=== PATIENT | female | born 1965 | race Caucasian/White ===

== ENCOUNTER 2025-09-01 17:37 | Inpatient (IN) | payer OTHER ==
[~2025-09-01] VITALS: Ht 160 cm; Wt 56.2 kg
[2025-09-01] MEDS: MORPHINE SULFATE 4 MG/ML INJ (FOR IV/IM USE) IV ONE (18:04)
[2025-09-01] MEDS: SODIUM CHLORIDE 0.9% 1,000 ML IV ONE ×2 (18:05→20:28)
[2025-09-01] MEDS: ONDANSETRON HCL 4MG/2ML INJ IV ONE (18:05)
[2025-09-01 18:32] LABS: BASOPHILS % 0.4 % (0.0-2.0); EOSINOPHILS % 0.2 % (0.0-5.0); HEMATOCRIT. 41.2 % (36.0-48.0); HEMOGLOBIN. 13.5 g/dL (12.0-16.0); LYMPHOCYTES % 9.1 % (20.0-50.0); MEAN PLATELET VOLUME 9.0 fl (7.4-10.4); MONOCYTES % 7.0 % (2.0-8.0); NEUTROPHILS % 83.3 % (40.0-76.0); PLATELET 326 x1000/uL (130-400); RED BLOOD CELL COUNT 4.80 mill/uL (4.2-5.4); RED CELL DISTRIBUTION WIDTH 13.8 % (11.6-14.6)
[2025-09-01 18:46] LABS: UREA NITROGEN BLOOD 14 mg/dL (9-23)
[2025-09-01 18:47] LABS: CREATININE 0.8 mg/dL (0.6-1.0)
[2025-09-01 18:49] LABS: ASPARTATE AMINOTRANSFERASE 18 IU/L (<34); BILIRUBIN DIRECT < 0.1 mg/dL (<=3.0); BILIRUBIN TOTAL 0.4 mg/dL (0.1-1.0); PROTEIN TOTAL 7.2 g/dL (6.0-8.3)
[2025-09-01] MEDS: KETOROLAC 15MG/ML VIAL IV ONE (20:19)
[2025-09-01] MEDS: METOCLOPRAMIDE HCL 10MG/2ML VIAL IV ONE (20:28)
[2025-09-01] MEDS: CEFTRIAXONE 2GM/50ML 50 ML IV ONE (20:44)
[2025-09-01] MEDS: HYDROMORPHONE HCL/PF 2MG/ML INJ IV ONE (20:45)
[2025-09-01 23:30] VITALS: BP 149/67; PULSE 69; RESP 15; TEMP 36.696
[2025-09-01] MEDS ORDERED: DEXTROSE 50% WATER 50ML SYRINGE IV PRN (23:30)
[2025-09-01] MEDS ORDERED: ACETAMINOPHEN 325MG TABLET PO PRN (23:30)
[2025-09-02] MEDS: PANTOPRAZOLE SODIUM 40 MG/VIAL IV SCH
[2025-09-02] MEDS: SODIUM CHLORIDE 0.9% 1,000 ML IV SCH
[2025-09-02] MEDS: HYDROMORPHONE HCL/PF 1MG/ML INJ IV PRN (00:01)
[2025-09-02] MEDS: MVI, ADULT NO.1 10 ML, FOLIC ACID 1 MG, THIAMINE HCL 100 MG in SODIUM CHLORIDE 0.9% 1,0... IV SCH (02:03)
[2025-09-02 04:00] VITALS: BP 146/76; PULSE 78; RESP 16; TEMP 36.7; O2SAT 92
[2025-09-02] MEDS: ONDANSETRON HCL 4MG/2ML INJ IV PRN (06:32)
[2025-09-02] MEDS: PIPERACILLIN/TAZO 3.375G/50ML 50 ML IV SCH (06:32)
[2025-09-02] MEDS: BLOOD SUGAR DIAGNOSTIC STRIP TEST SCH (07:03)
[2025-09-02] MEDS: INSULIN LISPRO 100 UNITS/ML SUBCUT SCH (07:30)
[2025-09-02 08:00] VITALS: BP 154/86; PULSE 78; RESP 20; TEMP 36.5; O2SAT 95
[2025-09-02 12:00] VITALS: BP 148/71; PULSE 71; RESP 20; TEMP 36.5; O2SAT 93
[2025-09-02 16:00] VITALS: BP 150/84; PULSE 74; RESP 20; TEMP 36.7; O2SAT 95
[2025-09-02] MEDS ORDERED: LORAZEPAM 1MG TABLET PO PRN (17:45)
[2025-09-02] MEDS ORDERED: HYDRALAZINE 10 MG in SODIUM CHLORIDE 0.9% 50 ML IV PRN (18:00)
[2025-09-02] MEDS ORDERED: CLONIDINE 0.1MG TABLET PO PRN (18:00)
[2025-09-02 18:04] LABS: HEMATOCRIT. 40.6 % (36.0-48.0); HEMOGLOBIN. 13.5 g/dL (12.0-16.0); MEAN PLATELET VOLUME 9.2 fl (7.4-10.4); PLATELET 290 x1000/uL (130-400); RED BLOOD CELL COUNT 4.72 mill/uL (4.2-5.4); RED CELL DISTRIBUTION WIDTH 14.4 % (11.6-14.6)
[2025-09-02 18:25] LABS: LYMPHOCYTES % MANUAL 3.0 % (20.0-60.0); MONOCYTES % MANUAL 5.0 % (2.0-8.0); NEUTROPHILS % MANUAL 92.0 % (45.0-75.0); PLATELET ESTIMATE NORMAL
[2025-09-02 18:29] LABS: CREATININE 0.6 mg/dL (0.6-1.0); UREA NITROGEN BLOOD 13 mg/dL (9-23)
[2025-09-02 18:30] LABS: ASPARTATE AMINOTRANSFERASE 17 IU/L (<34); PROTEIN TOTAL 6.2 g/dL (6.0-8.3)
[2025-09-02 18:31] LABS: BILIRUBIN DIRECT 0.2 mg/dL (<=3.0); PHOSPHORUS 3.0 mg/dL (2.5-4.9)
[2025-09-02 18:32] LABS: BILIRUBIN TOTAL 0.7 mg/dL (0.1-1.0)
[2025-09-02 20:00] VITALS: BP 128/67; PULSE 79; RESP 16; TEMP 36.7; O2SAT 92
[2025-09-03] VITALS: BP 125/74; PULSE 102; RESP 20; TEMP 36.9; O2SAT 94
[2025-09-03 04:00] VITALS: BP 117/81; PULSE 98; RESP 18; TEMP 36.9; O2SAT 92
[2025-09-03 08:00] VITALS: BP 153/86; PULSE 96; RESP 20; TEMP 36.5; O2SAT 93
[2025-09-03] MEDS: AMLODIPINE 2.5MG TABLET PO SCH (08:32)
[2025-09-03 09:33] LABS: HEPATITIS A AB IGM NEGATIVE (Negative)
[2025-09-03 09:34] LABS: HEPATITIS B CORE AB IGM NEGATIVE (Negative); HEPATITIS C AB NON REACTIVE (Neg) (Negative)
[2025-09-03] MEDS: ACETAMINOPHEN 325MG TABLET PO PRN (12:31)
[2025-09-03] MEDS: SIMETHICONE 80MG TABLET CHEW PO PRN (15:01)
[2025-09-03 16:00] VITALS: BP 141/78; PULSE 81; RESP 18; TEMP 36.8; O2SAT 99
[2025-09-03 20:00] VITALS: BP 154/78; PULSE 82; RESP 18; TEMP 36.7; O2SAT 94
[2025-09-03] MEDS: DOCUSATE SODIUM 100MG CAPSULE PO SCH (20:39)
[2025-09-04] VITALS: BP 163/74; PULSE 86; RESP 20; TEMP 36.5; O2SAT 91
[2025-09-04 04:00] VITALS: BP 154/96; PULSE 89; RESP 20; TEMP 36.7; O2SAT 92
[2025-09-04 07:37] LABS: HEMATOCRIT. 37.8 % (36.0-48.0); HEMOGLOBIN. 12.6 g/dL (12.0-16.0); MEAN PLATELET VOLUME 8.9 fl (7.4-10.4); PLATELET 285 x1000/uL (130-400); RED BLOOD CELL COUNT 4.43 mill/uL (4.2-5.4); RED CELL DISTRIBUTION WIDTH 13.9 % (11.6-14.6)
[2025-09-04 07:48] LABS: UREA NITROGEN BLOOD 13 mg/dL (9-23)
[2025-09-04 07:50] LABS: PHOSPHORUS 2.0 mg/dL (2.5-4.9)
[2025-09-04 07:51] LABS: CREATININE 0.4 mg/dL (0.6-1.0)
[2025-09-04 08:00] VITALS: BP 155/82; PULSE 86; RESP 19; TEMP 36.4; O2SAT 93
[2025-09-04] MEDS: KCL 20MEQ/100ML PREMIX 100 ML IV SCH (10:29)
[2025-09-04 12:00] VITALS: BP 147/80; PULSE 86; RESP 18; TEMP 36.5; O2SAT 91
[2025-09-04 16:00] VITALS: BP 132/76; PULSE 94; RESP 18; TEMP 36.7; O2SAT 92
[2025-09-04 16:24] LABS: BAND% 7.0 % (1.0-6.0); EOSINOPHILS % MANUAL 1.0 % (0.0-5.0); LYMPHOCYTES % MANUAL 5.0 % (20.0-60.0); MONOCYTES % MANUAL 8.0 % (2.0-8.0); NEUTROPHILS % MANUAL 79.0 % (45.0-75.0); PLATELET ESTIMATE NORMAL
[2025-09-04] MEDS: SODIUM PHOSPHATE 20 MMOL in DEXT 5% WATER 243.3333 ML IV SCH (17:51)
[2025-09-04 20:00] VITALS: BP 138/63; PULSE 95; RESP 18; TEMP 36.7; O2SAT 94
[2025-09-04] MEDS: HYDROMORPHONE HCL/PF 2MG/ML INJ IV PRN (20:10)
[2025-09-04] MEDS: ZOLPIDEM TARTRATE 5MG TABLET PO PRN (20:26)
[2025-09-05] VITALS (8 sets, daily range): BP systolic 114–154; BP diastolic 62–84; PULSE 80–99; RESP 18–22; TEMP 36.4–36.8; O2SAT 92–98
[2025-09-05 06:39] LABS: PLATELET 298 x1000/uL (130-400); RED BLOOD CELL COUNT 3.98 mill/uL (4.2-5.4); RED CELL DISTRIBUTION WIDTH 14.1 % (11.6-14.6)
[2025-09-05 06:49] LABS: CREATININE 0.5 mg/dL (0.6-1.0)
[2025-09-05 06:50] LABS: UREA NITROGEN BLOOD 11 mg/dL (9-23)
[2025-09-05 06:51] LABS: ASPARTATE AMINOTRANSFERASE 18 IU/L (<34); PROTEIN TOTAL 5.5 g/dL (6.0-8.3)
[2025-09-05 06:52] LABS: BILIRUBIN DIRECT 0.2 mg/dL (<=3.0); BILIRUBIN TOTAL 0.6 mg/dL (0.1-1.0); PHOSPHORUS 2.2 mg/dL (2.5-4.9)
[2025-09-05] MEDS: KCL 20MEQ/100ML PREMIX 100 ML IV SCH (10:49)
[2025-09-05 12:59] LABS: BG BASE EXCESS 2.5 mmol/L (-2.0-3.0); BG CARBOXYHEMOGLOBIN 1.1 % (0.5-1.5); BG DEOXYHEMOGLOBIN 12.8 % (0.0-5.0); BG FRACTION INSPIRED OXYGEN 21; BG HCO3 ACT 25.6 mmol/L (21.0-28.0); BG METHEMOGLOBIN 0.3 % (0.5-1.5); BG OXYGEN SATURATION 87.0 % (94.0-98.0); BG OXYHEMOGLOBIN 85.8 % (94.0-98.0); BG PCO2 34.5 mmHg (32.0-45.0); BG PH 7.488 (7.350-7.450); BG PO2 46.2 mmHg (83.0-108.0); BG SAMPLE SITE ALINE; BG TOTAL HEMOGLOBIN 12.2 g/dL (12.0-16.0); BG VENT MODE ROOM AIR
[2025-09-05] MEDS: IPRATROPIUM/ALBUTEROL 0.5-3(2.5)MG/3ML NEB HHN SCH (13:10)
[2025-09-05] MEDS: BUDESONIDE 0.5MG/2ML NEB HHN SCH (13:45)
[2025-09-05] MEDS: POTASSIUM PHOSPHATE 20 MMOL in DEXT 5% WATER 243.3333 ML IV SCH (15:34)
[2025-09-05] MEDS: PREDNISONE 20MG TABLET PO SCH (17:40)
[2025-09-05] MEDS ORDERED: LACTULOSE 20G/30ML UDC PO PRN (18:00)
[2025-09-05] MEDS: ACETAMINOPHEN 500MG TABLET PO SCH (18:22)
[2025-09-06] VITALS (10 sets, daily range): BP systolic 108–156; BP diastolic 66–88; PULSE 75–88; RESP 16–20; TEMP 36.2–36.8; O2SAT 92–96
[2025-09-06 06:55] LABS: HEMATOCRIT. 31.5 % (36.0-48.0); HEMOGLOBIN. 10.8 g/dL (12.0-16.0); MEAN PLATELET VOLUME 8.2 fl (7.4-10.4); PLATELET 316 x1000/uL (130-400); RED BLOOD CELL COUNT 3.72 mill/uL (4.2-5.4); RED CELL DISTRIBUTION WIDTH 14.2 % (11.6-14.6)
[2025-09-06 07:04] LABS: CREATININE 0.5 mg/dL (0.6-1.0); UREA NITROGEN BLOOD 9 mg/dL (9-23)
[2025-09-06 07:05] LABS: LACTATE DEHYDROGENASE 309 IU/L (120-246)
[2025-09-06] MEDS: POLYETHYLENE GLYCOL 3350 (17GM) 1 DOSE PACK PO SCH (08:30)
[2025-09-06 19:54] LABS: BAND% 5.0 % (1.0-6.0); EOSINOPHILS % MANUAL 1.0 % (0.0-5.0); LYMPHOCYTES % MANUAL 3.0 % (20.0-60.0); MONOCYTES % MANUAL 12.0 % (2.0-8.0); NEUTROPHILS % MANUAL 79.0 % (45.0-75.0); PLATELET ESTIMATE NORMAL
[2025-09-07] VITALS (8 sets, daily range): BP systolic 138–153; BP diastolic 62–77; PULSE 76–85; RESP 14–20; TEMP 36.5–36.9; O2SAT 91–95
[2025-09-07] MEDS: IPRATROPIUM/ALBUTEROL 0.5-3(2.5)MG/3ML NEB HHN PRN (08:43)
[2025-09-07] MEDS: POTASSIUM CHLORIDE 20MEQ TABLET SR PO SCH (09:52)
[2025-09-07] MEDS: PREDNISONE 10MG TABLET PO SCH (09:56)
[2025-09-07 16:46] LABS: HEMATOCRIT. 34.8 % (36.0-48.0); HEMOGLOBIN. 11.7 g/dL (12.0-16.0); MEAN PLATELET VOLUME 7.8 fl (7.4-10.4); PLATELET 428 x1000/uL (130-400); RED BLOOD CELL COUNT 4.08 mill/uL (4.2-5.4); RED CELL DISTRIBUTION WIDTH 14.5 % (11.6-14.6)
[2025-09-07 16:58] LABS: CREATININE 0.4 mg/dL (0.6-1.0); UREA NITROGEN BLOOD 9 mg/dL (9-23)
[2025-09-07 17:00] LABS: ASPARTATE AMINOTRANSFERASE 71 IU/L (<34); BILIRUBIN DIRECT 0.2 mg/dL (<=3.0); BILIRUBIN TOTAL 0.5 mg/dL (0.1-1.0); PROTEIN TOTAL 6.4 g/dL (6.0-8.3)
[2025-09-07 17:17] LABS: BAND% 1.0 % (1.0-6.0); LYMPHOCYTES % MANUAL 2.0 % (20.0-60.0); MONOCYTES % MANUAL 9.0 % (2.0-8.0); NEUTROPHILS % MANUAL 88.0 % (45.0-75.0); PLATELET ESTIMATE INCREASED
[2025-09-08 06:12] LABS: BASOPHILS % 0.1 % (0.0-2.0); EOSINOPHILS % 1.1 % (0.0-5.0); HEMATOCRIT. 34.4 % (36.0-48.0); HEMOGLOBIN. 11.4 g/dL (12.0-16.0); LYMPHOCYTES % 7.9 % (20.0-50.0); MEAN PLATELET VOLUME 7.7 fl (7.4-10.4); MONOCYTES % 10.9 % (2.0-8.0); NEUTROPHILS % 80.0 % (40.0-76.0); PLATELET 448 x1000/uL (130-400); RED BLOOD CELL COUNT 4.07 mill/uL (4.2-5.4); RED CELL DISTRIBUTION WIDTH 14.5 % (11.6-14.6)
[2025-09-08 06:14] LABS: CREATININE 0.5 mg/dL (0.6-1.0); UREA NITROGEN BLOOD 13 mg/dL (9-23)
[2025-09-08 06:16] LABS: ASPARTATE AMINOTRANSFERASE 58 IU/L (<34); BILIRUBIN DIRECT 0.2 mg/dL (<=3.0); BILIRUBIN TOTAL 0.6 mg/dL (0.1-1.0); PROTEIN TOTAL 6.0 g/dL (6.0-8.3)
[2025-09-08 08:00] VITALS: BP 144/61; PULSE 84; RESP 18; TEMP 35; O2SAT 96
[2025-09-08 09:05] VITALS: PULSE 88; RESP 20
[2025-09-08 12:00] VITALS: BP 154/81; PULSE 92; RESP 18; TEMP 36.5; O2SAT 96
[2025-09-08 16:00] VITALS: BP 162/88; PULSE 86; RESP 18; TEMP 36.7; O2SAT 95
[2025-09-08 20:00] VITALS: BP 146/79; PULSE 98; RESP 18; TEMP 36.9; O2SAT 93
[2025-09-08 20:49] VITALS: PULSE 80; RESP 10
[2025-09-09] VITALS (7 sets, daily range): BP systolic 138–148; BP diastolic 70–82; PULSE 80–108; RESP 18–24; TEMP 36.6–37.1; O2SAT 94–99
[2025-09-09] MEDS ORDERED: NALOXONE HCL 0.4MG/ML VIAL IV PRN (11:00)
[2025-09-09 11:41] LABS: BG BASE EXCESS 0.5 mmol/L (-2.0-3.0); BG CARBOXYHEMOGLOBIN 0.6 % (0.5-1.5); BG DEOXYHEMOGLOBIN 5.4 % (0.0-5.0); BG HCO3 ACT 22.7 mmol/L (21.0-28.0); BG METHEMOGLOBIN 0.3 % (0.5-1.5); BG OXYGEN SATURATION 94.6 % (94.0-98.0); BG OXYHEMOGLOBIN 93.7 % (94.0-98.0); BG PCO2 29.6 mmHg (32.0-45.0); BG PH 7.503 (7.350-7.450); BG PO2 68.4 mmHg (83.0-108.0); BG SAMPLE SITE LEFT RADIAL; BG TOTAL HEMOGLOBIN 12.5 g/dL (12.0-16.0); BG VENT MODE ROOM AIR
[2025-09-09] MEDS ORDERED: DIPHENOXYLATE/ATROPINE 2.5/0.025MG TABLET PO PRN (17:30)
[2025-09-09] MEDS: NYSTATIN 100,000 UNITS/ML 5ML UDC SSW SCH (17:57)
[2025-09-09] MEDS: ZOLPIDEM TARTRATE 5MG TABLET PO PRN (21:14)
[2025-09-09] MEDS: HYDROCODONE/ACETAMINOPHEN 10/325MG TABLET PO PRN (21:16)
[2025-09-10] VITALS (7 sets, daily range): BP systolic 122–135; BP diastolic 75–83; PULSE 84–114; RESP 17–20; TEMP 36.6–37.1; O2SAT 93–100
[2025-09-10] MEDS: HYDROMORPHONE HCL/PF 1MG/ML INJ IV PRN (06:44)
[2025-09-10] MEDS: FLUCONAZOLE 100MG TABLET PO SCH (09:11)
[2025-09-10] MEDS: PANTOPRAZOLE 40MG DR TABLET PO SCH (20:56)
[2025-09-11 04:00] VITALS: BP 118/66; PULSE 82; RESP 18; TEMP 36.4; O2SAT 100
[2025-09-11 08:00] VITALS: BP 110/63; PULSE 81; RESP 18; TEMP 36.7; O2SAT 96
[2025-09-11 12:00] VITALS: BP 123/75; PULSE 95; RESP 18; TEMP 36.7; O2SAT 92
[2025-09-11 12:09] LABS: HEMATOCRIT. 35.3 % (36.0-48.0); HEMOGLOBIN. 11.7 g/dL (12.0-16.0); MEAN PLATELET VOLUME 7.8 fl (7.4-10.4); PLATELET 546 x1000/uL (130-400); RED BLOOD CELL COUNT 4.15 mill/uL (4.2-5.4); RED CELL DISTRIBUTION WIDTH 14.2 % (11.6-14.6)
[2025-09-11 12:28] LABS: CREATININE 0.5 mg/dL (0.6-1.0)
[2025-09-11 12:29] LABS: UREA NITROGEN BLOOD 15 mg/dL (9-23)
[2025-09-11 12:30] LABS: ASPARTATE AMINOTRANSFERASE 47 IU/L (<34)
[2025-09-11 12:31] LABS: BILIRUBIN TOTAL 0.5 mg/dL (0.1-1.0); PROTEIN TOTAL 6.4 g/dL (6.0-8.3)
[2025-09-11 16:00] VITALS: BP 120/79; PULSE 94; RESP 20; TEMP 36.7; O2SAT 95
[2025-09-11 20:20] LABS: EOSINOPHILS % MANUAL 1.0 % (0.0-5.0); LYMPHOCYTES % MANUAL 6.0 % (20.0-60.0); MONOCYTES % MANUAL 7.0 % (2.0-8.0); NEUTROPHILS % MANUAL 86.0 % (45.0-75.0); PLATELET ESTIMATE INCREASED
[2025-09-12] VITALS: BP 121/74; PULSE 87; RESP 17; TEMP 36.7; O2SAT 95
[2025-09-12 04:00] VITALS: BP 115/60; PULSE 74; RESP 17; TEMP 36.3; O2SAT 94
[2025-09-12 08:00] VITALS: BP 121/72; PULSE 81; RESP 16; TEMP 36.4; O2SAT 95
[2025-09-12 12:00] VITALS: BP 119/74; PULSE 97; TEMP 36.6; O2SAT 94
[2025-09-12 12:21] LABS: BASOPHILS % 0.8 % (0.0-2.0); EOSINOPHILS % 2.2 % (0.0-5.0); HEMATOCRIT. 34.2 % (36.0-48.0); HEMOGLOBIN. 11.2 g/dL (12.0-16.0); LYMPHOCYTES % 13.2 % (20.0-50.0); MEAN PLATELET VOLUME 7.9 fl (7.4-10.4); MONOCYTES % 9.9 % (2.0-8.0); NEUTROPHILS % 73.9 % (40.0-76.0); PLATELET 549 x1000/uL (130-400); RED BLOOD CELL COUNT 4.01 mill/uL (4.2-5.4); RED CELL DISTRIBUTION WIDTH 14.1 % (11.6-14.6)
[2025-09-12 12:49] LABS: CREATININE 0.6 mg/dL (0.6-1.0)
[2025-09-12 12:50] LABS: UREA NITROGEN BLOOD 14 mg/dL (9-23)
[2025-09-12 12:51] LABS: ASPARTATE AMINOTRANSFERASE 34 IU/L (<34)
[2025-09-12 12:52] LABS: BILIRUBIN TOTAL 0.5 mg/dL (0.1-1.0); PROTEIN TOTAL 6.5 g/dL (6.0-8.3)
[2025-09-12 16:00] VITALS: BP 107/62; PULSE 93; RESP 14; TEMP 36.2; O2SAT 93
[2025-09-12 20:00] VITALS: BP 109/68; PULSE 98; RESP 17; TEMP 36.9; O2SAT 93
[2025-09-13] VITALS: BP 107/56; PULSE 91; RESP 17; TEMP 37.1; O2SAT 94
[2025-09-13 04:00] VITALS: BP 111/64; PULSE 86; RESP 18; TEMP 36.7; O2SAT 90
[2025-09-13 07:19] LABS: CREATININE 0.5 mg/dL (0.6-1.0); UREA NITROGEN BLOOD 8 mg/dL (9-23)
[2025-09-13 07:20] LABS: BASOPHILS % 0.5 % (0.0-2.0); EOSINOPHILS % 3.0 % (0.0-5.0); HEMATOCRIT. 32.3 % (36.0-48.0); HEMOGLOBIN. 10.8 g/dL (12.0-16.0); LYMPHOCYTES % 11.6 % (20.0-50.0); MEAN PLATELET VOLUME 7.7 fl (7.4-10.4); MONOCYTES % 9.4 % (2.0-8.0); NEUTROPHILS % 75.5 % (40.0-76.0); PLATELET 497 x1000/uL (130-400); RED BLOOD CELL COUNT 3.82 mill/uL (4.2-5.4); RED CELL DISTRIBUTION WIDTH 14.0 % (11.6-14.6)
[2025-09-13 07:21] LABS: ASPARTATE AMINOTRANSFERASE 41 IU/L (<34)
[2025-09-13 07:22] LABS: BILIRUBIN TOTAL 0.5 mg/dL (0.1-1.0); PROTEIN TOTAL 5.9 g/dL (6.0-8.3)
[2025-09-13 08:00] VITALS: BP 114/71; PULSE 93; RESP 18; TEMP 36.9; O2SAT 96
[2025-09-13 09:49] VITALS: BP 71/93; PULSE 93; RESP 16; TEMP 98.4
[2025-09-13] MEDS ORDERED: HYDR-4009 PO (10:16)
[2025-09-13] MEDS: DIPHENHYDRAMINE 50MG CAPSULE PO SCH (12:48)
[2025-09-13] MEDS: HYDROCODONE/ACETAMINOPHEN 5/325MG TABLET PO SCH (12:48)
[2025-09-15] MEDS ORDERED: PREDNISONE 5MG TABLET PO SCH (09:00)
== END 2025-09-13 12:54 | disposition home or self-care (01) | DRG 438 ==
LOC: ER 17:37 → 8EST 20:24 → EDBEDREQTM 20:29 → EDBEDREQ 20:29 → ENRESERV 21:40
PROVIDERS: ADMIT Internal Medicine; ATTEND Internal Medicine
DX: K85.90 Acute pancreatitis without necrosis or infection, unspecified (principal); J96.01 Acute respiratory failure with hypoxia; R65.10 Systemic inflammatory response syndrome (SIRS) of non-infectious origin without acute organ dysfunction; J84.9 Interstitial pulmonary disease, unspecified; K56.0 Paralytic ileus; K86.1 Other chronic pancreatitis; K80.20 Calculus of gallbladder without cholecystitis without obstruction; D64.9 Anemia, unspecified; I10 Essential (primary) hypertension; K76.0 Fatty (change of) liver, not elsewhere classified; E11.9 Type 2 diabetes mellitus without complications; E83.39 Other disorders of phosphorus metabolism; D72.828 Other elevated white blood cell count; F10.90 Alcohol use, unspecified, uncomplicated; J44.9 Chronic obstructive pulmonary disease, unspecified; E87.6 Hypokalemia; E87.8 Other disorders of electrolyte and fluid balance, not elsewhere classified; F41.9 Anxiety disorder, unspecified; R16.0 Hepatomegaly, not elsewhere classified; Z87.891 Personal history of nicotine dependence
CPT/HCPCS: 36415; 36600; 71045; 74018; 74176; 74181; 76700; 80048; 80053; 80076; 82150; 82375; 82805; 82962; 83036; 83615; 83735; 83880; 84100; 85025; 85027; 86705; 86709; 87340; 93005; 94070; 94640; 94664; 99285; J0696; J1171; J1815; J1885; J2270; J2405; J2470; J2543; J2765; J3411; J3480; J3490; J7030; J7060; J7512; J7626; Q0163